=== PATIENT | male | born 1975 | race Caucasian/White ===

== ENCOUNTER 2017-10-10 02:09 | Emergency (ER) | payer BC ==
[2017-10-10 02:22] VITALS: BP 118/73; PULSE 63; TEMP 97.6; BMI 32.1
[2017-10-10] MEDS ORDERED: PROPARACAINE 0.5% OPHTH SOLN 15 ML BTL OU ONE (02:47)
[2017-10-10] MEDS ORDERED: FLUORESCEIN NA 1 EA STRIP OU ONE (02:48)
[2017-10-10] MEDS ORDERED: FLUORESCEIN NA 1 EA STRIP ONE (02:54)
[2017-10-10] MEDS ORDERED: TETRACAINE 0.5% OPHTH SOLN 2 ML BOTTLE ONE (02:56)
--- NOTE | 2017-10-10 04:27 | PDOC ---
History of Present Illness - General Chief Complaint: Eye Problem Stated Complaint: UNABLE TO SEE Time Seen by Provider: 10/10/17 02:14 History Source: Patient Exam Limitations: No Limitations - History of Present Illness Initial Comments: 10/10/17 05:17 42M with pmh of laser eye surgery 1 year ago presents with b/l eye pain since 8pm today. Patient states that he originally had a foreign object sensation in the right eye which he rubbed for a while. The sensation quickly spread to the left eye which he rubbed too. He went to bed and around 2am he woke up to use the restroom and noticed that it was very painful to open his eyes. He then came to the ER. 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 He also claims that he has been sick with a cold today and that his eyes were crusted this morning. 10/10/17 05:22 Past History - Past Medical History Allergies/Adverse Reactions: Allergies Allergy/AdvReac Type Severity Reaction Status Date / Time No Known Allergies Allergy Verified 10/10/17 02:20 Home Medications: Ambulatory Orders Carboxymethylcellulos/Glycerin [[facility] Lubricating Eye Drops] 15 ml OP PRN PRN #7 drops 10/10/17 - Suicide/Smoking/Psychosocial Hx Smoking Status: No Smoking History: Never smoked Have you smoked in the past 12 months: No Number of Cigarettes Smoked Daily: 0 Information on smoking cessation initiated: No Hx Alcohol Use: No Drug/Substance Use Hx: No Substance Use Type: None Review of Systems - Review of Systems Constitutional: No: Symptoms Reported HEENTM: Yes: Eye Pain, Blurred Vision, Nose Congestion. No: Double Vision Respiratory: Yes: Cough. No: Shortness of Breath, Stridor, Wheezing, Productive cough Cardiac (ROS): No: Symptoms Reported ABD/GI: No: Symptoms Reported : No: Symptoms Reported Musculoskeletal: No: Symptoms Reported Integumentary: No: Symptoms Reported Neurological: No: Symptoms reported All Other Systems: Reviewed and Negative *Physical Exam - Vital Signs Last Vital Signs Temp Pulse Resp BP Pulse Ox 97.6 F 63 20 118/73 99 10/10/17 02:21 10/10/17 02:21 10/10/17 02:21 10/10/17 02:21 10/10/17 02:21 - Physical Exam General Appearance: Yes: Nourished, Appropriately Dressed, Mild Distress HEENT: positive: Other (red conjunctiva, watery discharged. Slit lamp exam negative for foreign object, lesions) Respiratory/Chest: positive: Lungs Clear, Normal Breath Sounds. negative: Chest Tender Cardiovascular: positive: Regular Rhythm, Regular Rate, S1, S2 Gastrointestinal/Abdominal: positive: Normal Bowel Sounds Neurologic: positive: it specialist II-XII NML intact (no change in vision acuity), Fully Oriented, Alert, Normal Mood/Affect ED Treatment Course - Medications Given in the ED: ED Medications Discontinued Medications Generic Name Dose Route Start Last Admin Trade Name Freq PRN Reason Stop Dose Admin Fluorescein Sodium 2 ea 10/10/17 02:48 10/10/17 02:55 Fluorets - OU 10/10/17 02:49 2 ea ONCE ONE Administration Proparacaine HCl 2 drop 10/10/17 02:47 10/10/17 02:57 Alcaine - OU 10/10/17 02:48 2 drop ONCE ONE Administration Medical Decision Making - Medical Decision Making 10/10/17 06:18 42m WITH B/L eye pain Slit lamp exam with fluorescin negative for foreign object. Clear mucosa under eyelid No photophobia, normal acuity. No purulent discharge. Patient discharged with lubricant eyedrop and ophthalmologic referral. *DC/Admit/Observation/Transfer Diagnosis at time of Disposition: Viral conjunctivitis of both eyes - Discharge Dispostion Disposition: HOME Admit: No - Prescriptions Prescriptions: Carboxymethylcellulos/Glycerin [[facility] Lubricating Eye Drops] 15 ml OP PRN PRN #7 drops PRN Reason: Dry Eyes - Referrals Referrals: Giovanni Guillen MD [Primary Care Provider] - Graham Hughes [Staff Physician] - - Patient Instructions Printed Discharge Instructions: How to Instill Eye Drops Additional Instructions: Follow up with Ophtalmologist as soon as you get home. Come back to the Emergency Department for any new, worsening or concerning symptom. - Post Discharge Activity
[2017-10-10] MEDS ORDERED: OCULAR LUBRICANT OPHTHALMIC OINTMENT 7 GM TUBE OU PRN (04:45)
[2017-10-10] MEDS ORDERED: ARTIFICIAL TEARS (POLYVINYL ALCOHOL 1.4%) OPTH DROPS OU ONE (04:54)
[2017-10-10] MEDS ORDERED: ARTIFICIAL TEARS (POLYVINYL ALCOHOL 1.4%) OPTH DROPS OU PRN (04:59)
== END 2017-10-10 05:17 | disposition home or self-care (01) ==
LOC: JER 02:09
DX: B30.8 Other viral conjunctivitis (principal); B97.89 Other viral agents as the cause of diseases classified elsewhere
CPT/HCPCS: 99281-25

== ENCOUNTER 2020-11-30 12:30 | Emergency (ER) | payer BC, OTHER | END 2020-11-30 13:01 | disposition home or self-care (01) | LOC: JVIRT 12:30 | DX: Z20.822 Contact with and (suspected) exposure to COVID-19 (principal) | CPT/HCPCS: C9803; Q3014-GT; U0003 ==

== ENCOUNTER 2020-12-27 11:14 | Emergency (ER) | payer BC | END 2020-12-27 11:35 | disposition home or self-care (01) | LOC: JVIRT 11:14 | DX: Z20.822 Contact with and (suspected) exposure to COVID-19 (principal) | CPT/HCPCS: G2251-GT; Q3014-GT ==